=== PATIENT | female | born 1980 | race Caucasian/White ===

== ENCOUNTER → 2016-03-14 | Outpatient (REF) | payer OTHER ==
[~2016-03-14] MED LIST: BACT800T5 PO; CEFT1INJ65 IM; CLAR1TAB2 PO; COLA100C PO; CYCL10TA PO; IBUP80TA PO; MELO15TA4 PO; MOM30SS PO; PERC5TAB6 PO; PERCOCET PO; VITAPRTA PO
== END ==
LOC: M SMT 17:03
PROVIDERS: ATTEND Urology
DX: N39.0 Urinary tract infection, site not specified (principal)

== ENCOUNTER → 2016-03-30 | Outpatient (REF) | payer OTHER | LOC: M SMT 17:00 | PROVIDERS: ATTEND Urology | DX: N39.0 Urinary tract infection, site not specified (principal) ==

== ENCOUNTER 2016-06-25 06:34 | Emergency (ER) | payer OTHER ==
[~2016-06-25] VITALS: Ht 165.1 cm; Wt 77.1 kg
[~2016-06-25 06:34] MED LIST changes: -COLA100C PO; +COLA100C3 PO
[2016-06-25 06:39] VITALS: BP 124/66
[2016-06-25] MEDS ORDERED: ZYRT10CA PO (06:43)
[2016-06-25] MEDS ORDERED: MAGICMW SSP (07:28)
== END 2016-06-25 07:35 | disposition home or self-care (01) ==
LOC: M ED 07:33
DX: J02.9 Acute pharyngitis, unspecified (principal); D64.9 Anemia, unspecified; Z87.442 Personal history of urinary calculi

== ENCOUNTER → 2016-08-13 | Outpatient (CLI) | payer OTHER ==
[~2016-08-13] MED LIST changes: -COLA100C3 PO; +COLA100C5 PO; +MAGICMW SSP; +PERC5TAB12 PO; -PERC5TAB6 PO; +ZYRT10CA PO; +[UNRECOGNIZED DRUG - REMARK]
--- NOTE | 2016-08-14 02:53 | REP ---
Clinical: Urinary tract abnormality. Technique: Single supine view of the abdomen and pelvis. Findings: No obvious urinary tract calcifications are appreciated by radiographic evaluation. The bowel gas pattern is nonspecific. The skeletal structures are grossly intact - partial sacralization of L5 is suggested. Impression: Limited evaluation. No obvious urinary tract calcifications appreciated by radiographic evaluation. Signed by Dalton Long MD 08/14/2016 02:44 A
== END ==
LOC: M SMT 11:02
PROVIDERS: ATTEND Urology
DX: N18.9 Chronic kidney disease, unspecified (principal)
CPT/HCPCS: 74000; G0463

== ENCOUNTER 2016-08-30 19:35 | Emergency (ER) | payer OTHER ==
[~2016-08-30] VITALS: Ht 165.1 cm; Wt 79.5 kg
[~2016-08-30 19:35] MED LIST changes: -[UNRECOGNIZED DRUG - REMARK]
[2016-08-30] MEDS ORDERED: [UNRECOGNIZED DRUG - REMARK] (19:48)
[2016-08-30 21:57] LABS: BASO % 0.4 % (0.0-1.0); EOS # 0.1 K/mm3 (0.0-0.50); EOS % 0.8 % (0.0-3.0); LARGE UNSTAINED CELL # 0.1 K/mm3 (0.0-0.4); LARGE UNSTAINED CELL % 1.1 % (0.0-4.0); LYMPH # 1.8 K/mm3 (1.5-4.5); LYMPH % 12.8 % (24.0-44.0); MEAN CORPUSCULAR HGB CONC 31.7 g/dl (32.0-36.5); MEAN CORPUSCULAR VOLUME 78.9 fl (80.0-96.0); MONO # 0.8 K/mm3 (0.0-0.8); MONO % 6.2 % (0.0-5.0); NEUTROPHILS % 78.7 % (36.0-66.0); PLATELET COUNT, AUTOMATED 235 k/mm3 (150-450); WHITE BLOOD COUNT 12.6 K/mm3 (4.0-10.0)
[2016-08-30 22:08] LABS: CONTROL LINE HCG INT CTR LINE PRESENT
[2016-08-30 22:18] LABS: ANION GAP 8 MEQ/L (8-16); BLOOD UREA NITROGEN 17 MG/DL (7-18); CALCIUM LEVEL 8.4 MG/DL (8.5-10.1); CARBON DIOXIDE LEVEL 26 MEQ/L (21-32); CHLORIDE LEVEL 103 MEQ/L (98-107); CREATININE FOR GFR 0.92 MG/DL (0.55-1.02); FREE T4 0.96 NG/DL (0.76-1.46); GLOMERULAR FILTRATION RATE > 60.0 (>60); GLUCOSE, FASTING 130 MG/DL (70-105); MAGNESIUM LEVEL 2.1 MG/DL (1.8-2.4); POTASSIUM SERUM 3.3 MEQ/L (3.5-5.1); SODIUM LEVEL 137 MEQ/L (136-145)
[2016-08-30] MEDS ORDERED: LR 1,000 ML IV ONE (22:30)
[2016-08-30] MEDS ORDERED: POTASSIUM CHLORIDE 10 MEQ SR TABLET PO ONE (22:30)
[2016-08-30 23:50] VITALS: BP 118/75
[2016-08-30 23:53] LABS: METHADONE URINE NEGATIVE (NEGATIVE)
--- NOTE | 2016-08-31 07:39 | ECGEPIP ---
Stationary ECG Study [facility] - ED Test Date: 2016-08-30 Pat Name: INGRID HOOD Department: Room: - Gender: F It Help Desk Analyst: MIKHAIL : 1980 Requested By: RAJWINDER VERAS Order Number: [id number] Reading MD: Deepika Archibald Measurements Intervals [place] Rate: 63 P: 30 IN: 164 QRS: 65 QRSD: 95 T: 39 QT: 415 QTc: 427 Interpretive Statements SINUS RHYTHM DECREASED RATE 08/22/14 Electronically Signed On 08-31-2016 7:39:06 EDT by Deepika Archibald
== END 2016-08-31 00:01 | disposition home or self-care (01) ==
LOC: M ED 19:35
DX: B34.9 Viral infection, unspecified (principal); Z79.899 Other long term (current) drug therapy